=== PATIENT | female | born 1940 | race Caucasian/White ===

== ENCOUNTER 2019-11-21 17:39 | Inpatient (IN) | payer MEDICARE, OTHER ==
[2019-11-23] MEDS ORDERED: guaiFENesin ER 600 MG TAB PO PRN (07:28)
[2019-11-23] MEDS ORDERED: Loperamide HCl 2 MG CAP PO PRN (07:28)
[2019-11-23] MEDS ORDERED: Acetaminophen 500 MG TAB PO PRN (07:28)
[2019-11-23] MEDS ORDERED: DEXTROMETHORPHAN POLISTIREX PO PRN (08:15)
[2019-11-23] MEDS: Aspirin 81 mg Enteric Coated Tablet PO SCH (08:39)
[2019-11-23] MEDS: Ferrous Sulfate 325 MG TAB PO SCH ×2 (08:39→16:00)
[2019-11-23] MEDS: Carbidopa/Levodopa CR 50-200 mg Tablet PO SCH ×3 (08:39→21:55)
--- NOTE | 2019-11-23 08:50 | HP ---
HISTORY OF PRESENT ILLNESS: 79-year-old female admitted to Skilled unit for further physical therapy, recovery and rehabilitation as she has recently experienced significant physical and functional decline. She was transferred from [facility] where she had been admitted on 11/11/19 for AMS and UTI. She tested + for COVID-19 2 days prior to her admission, and based on her history, it was estimated she was between 9-14 days from onset of COVID symptoms/exposure. Fortunately she experienced only mild respiratory illness. She was treated for UTI, and Infectious Disease determined that her altered status was most likely due to her past history of dementia and Parkinson's with minimal respiratory impact from COVID-19. Her urine culture was positive for gram-negative rods, but low colony count, blood cultures were negative. History obtained from record; patient is disoriented and confused, and there is no family present. CURRENT MEDICATIONS: Include; 1. Carbidopa-levodopa t.i.d. 2. Vitamin D3 1000 units at bedtime. 3. Donepezil 10 mg daily. 4. Ferrous sulfate 325 p.o. b.i.d. 5. Memantine 10 mg b.i.d. 6. She has p.r.n. cough medicines, which she has not used. 7. She is also taking citalopram 20 mg at bedtime. 8. She has p.r.n. imodium. 9. Ziprasidone 20 mg at bedtime. 10. She has Colace for p.r.n. constipation. 11. She is taking Lipitor 10 mg. 12. Aspirin 81 mg. PAST MEDICAL HISTORY: Breast cancer, dementia, Parkinson's. PAST SURGICAL HISTORY: Left mastectomy. SOCIAL HISTORY: She currently resides in a long-term care facility in [facility]. FAMILY HISTORY: Unknown. ALLERGIES: ZOFRAN, UNKNOWN REACTION. REVIEW OF SYSTEMS: Is not obtainable due to patient's underlying dementia. PHYSICAL EXAMINATION: GENERAL APPEARANCE: She is alert when aroused, oriented times person only. VITAL SIGNS: Temperature 97.4, heart rate 58, respirations 20, 95% O2 Sat, and Blood pressure 99/65. HEENT: Eyes, conjunctivae clear. No discharge. Moist mucous membranes. NECK/THYROID: Supple. No lymphadenopathy. No carotid bruits. No thyromegaly. CARDIOVASCULAR: Regular rate and rhythm. Normal S1 and S2. No murmurs. Occasional early ectopic. RESPIRATORY: Clear to auscultation and good air entry bilaterally. No wheezes, rhonchi, or rales, respirations are regular and unlabored. NEUROLOGIC: CNII-XII grossly intact. Motor function slowed with decreased coordination. SKIN: Normal. No rash. EXTREMITIES: Well-formed, symmetrical. No clubbing, cyanosis, or edema. ASSESSMENT: 1. Dementia. 2. Parkinson's. 3. Recent COVID-19 infection, day 14+ from onset PLAN: Admit to [facility] for [facility] care and physical therapy to strengthen and maximize her physical and functional activity level. Job ID: [id number] [facility]
[2019-11-23] MEDS: Ziprasidone 20 MG CAP PO SCH (16:00)
[2019-11-23] MEDS: Citalopram 20 MG TAB PO SCH (21:55)
[2019-11-23] MEDS: Atorvastatin Calcium 10 MG TAB PO SCH (21:55)
[2019-11-23] MEDS: Donepezil HCl 10 MG TAB PO SCH (21:56)
[2019-11-24] MEDS: Ferrous Sulfate 325 MG TAB PO SCH ×3 (08:38→16:15)
[2019-11-24] MEDS: Aspirin 81 mg Enteric Coated Tablet PO SCH ×2 (08:38→09:16)
[2019-11-24] MEDS: Carbidopa/Levodopa CR 50-200 mg Tablet PO SCH ×4 (08:39→20:28)
[2019-11-24] MEDS ORDERED: Aspirin 81 mg Enteric Coated Tablet PO SCH (12:15)
[2019-11-24] MEDS ORDERED: Carbidopa/Levodopa CR 50-200 mg Tablet PO SCH (12:15)
[2019-11-24] MEDS ORDERED: Ferrous Sulfate 325 MG TAB PO SCH (12:15)
[2019-11-24 13:26] VITALS: BMI 26.2
[2019-11-24] MEDS: Ziprasidone 20 MG CAP PO SCH (16:01)
[2019-11-24] MEDS: Citalopram 20 MG TAB PO SCH (20:27)
[2019-11-24] MEDS: Donepezil HCl 10 MG TAB PO SCH (20:29)
[2019-11-24] MEDS: Atorvastatin Calcium 10 MG TAB PO SCH (20:29)
[2019-11-25] MEDS: Ferrous Sulfate 325 MG TAB PO SCH ×2 (09:50→16:00)
[2019-11-25] MEDS: Aspirin 81 mg Enteric Coated Tablet PO SCH (09:51)
[2019-11-25] MEDS: Carbidopa/Levodopa CR 50-200 mg Tablet PO SCH ×3 (09:51→20:43)
[2019-11-25] MEDS: Ziprasidone 20 MG CAP PO SCH (16:00)
[2019-11-25] MEDS: Atorvastatin Calcium 10 MG TAB PO SCH (20:44)
[2019-11-25] MEDS: Citalopram 20 MG TAB PO SCH (20:45)
[2019-11-25] MEDS: Donepezil HCl 10 MG TAB PO SCH (20:45)
[2019-11-26] MEDS: Carbidopa/Levodopa CR 50-200 mg Tablet PO SCH ×3 (08:26→20:53)
[2019-11-26] MEDS: Ferrous Sulfate 325 MG TAB PO SCH ×2 (08:26→15:59)
[2019-11-26] MEDS: Aspirin 81 mg Enteric Coated Tablet PO SCH (08:26)
[2019-11-26] MEDS: Ziprasidone 20 MG CAP PO SCH (15:59)
[2019-11-26] MEDS: Donepezil HCl 10 MG TAB PO SCH (20:53)
[2019-11-26] MEDS: Atorvastatin Calcium 10 MG TAB PO SCH (20:54)
[2019-11-26] MEDS: Citalopram 20 MG TAB PO SCH (20:54)
[2019-11-27] MEDS: Carbidopa/Levodopa CR 50-200 mg Tablet PO SCH ×3 (08:30→21:12)
[2019-11-27] MEDS: Ferrous Sulfate 325 MG TAB PO SCH ×2 (08:30→18:10)
[2019-11-27] MEDS: Aspirin 81 mg Enteric Coated Tablet PO SCH (08:30)
[2019-11-27] MEDS: Citalopram 20 MG TAB PO SCH (21:12)
[2019-11-27] MEDS: Donepezil HCl 10 MG TAB PO SCH (21:13)
[2019-11-28 05:28] LABS: ALT (SGPT) 28 U/L (8-55); AST (SGOT) 29 U/L (5-34); Albumin 3.1 g/dL (3.4-4.8); Alkaline Phosphatase 110 U/L (40-110); Anion Gap 14 mmol/L (10-20); BUN (Urea Nitrogen) 24 mg/dL (9.8-20.1); Bilirubin, Total 0.5 mg/dL (0.2-1.2); Calc. Creatinine Clearance 79 mL/min (70-130); Calcium 8.7 mg/dL (7.8-10.44); Carbon Dioxide 25 mmol/L (23-31); Chloride 103 mmol/L (98-107); Estimated GFR-MDRD Greater than 90; Globulin 2.8 g/dL (2.4-3.5); Glucose 90 mg/dL (83-110); Potassium 4.2 mmol/L (3.5-5.1); Protein, Total 5.9 g/dL (6.0-8.3); Sodium 138 mmol/L (136-145)
[2019-11-28 05:31] LABS: #Basophils 0.1 thou/uL (0.0-0.2); #Eosinphils 0.2 thou/uL (0.0-0.7); #Lymphocytes 1.4 thou/uL (1.20-3.40); #Monocytes 0.4 thou/uL (0.11-0.59); #Neutrophils 3.5 thou/uL (1.40-6.50); %Eosinophils 3.3 % (0.0-10.0); %Lymphocytes 24.7 % (21.0-51.0); %Monocytes 7.5 % (0.0-10.0); %Neutrophils 63.5 % (42.0-75.0); Hemoglobin 10.6 g/dL (12.0-16.0); Mean Corpuscular HGB CONC 31.8 g/dL (32.0-36.0); Mean Corpuscular Hemoglobin 31.6 pg (27.0-31.0); Mean Corpuscular Volume 99.1 fL (78.0-98.0); Mean Platelet Volume 5.6 fL (7.4-10.4); Platelet Count 216 thou/uL (130-400); Red Blood Cell (RBC) Count 3.36 mill/uL (4.20-5.40); White Blood Cell (WBC) Count 5.5 thou/uL (4.8-10.8)
[2019-11-28] MEDS: Aspirin 81 mg Enteric Coated Tablet PO SCH (09:00)
[2019-11-28] MEDS: Carbidopa/Levodopa CR 50-200 mg Tablet PO SCH ×3 (09:01→21:02)
[2019-11-28] MEDS: Ferrous Sulfate 325 MG TAB PO SCH ×2 (09:02→16:28)
[2019-11-28] MEDS: Donepezil HCl 10 MG TAB PO SCH (21:02)
[2019-11-28] MEDS: Atorvastatin Calcium 10 MG TAB PO SCH (21:02)
[2019-11-28] MEDS: Citalopram 20 MG TAB PO SCH (21:02)
[2019-11-29] MEDS: Docusate 100 MG CAP PO PRN (09:01)
[2019-11-29] MEDS: Ferrous Sulfate 325 MG TAB PO SCH ×2 (09:02→17:57)
[2019-11-29] MEDS: Carbidopa/Levodopa CR 50-200 mg Tablet PO SCH ×3 (09:02→21:03)
[2019-11-29] MEDS: Aspirin 81 mg Enteric Coated Tablet PO SCH (09:03)
[2019-11-29] MEDS: Atorvastatin Calcium 10 MG TAB PO SCH (21:00)
[2019-11-29] MEDS: Donepezil HCl 10 MG TAB PO SCH (21:00)
[2019-11-29] MEDS: Citalopram 20 MG TAB PO SCH (21:01)
[2019-11-30] MEDS: Ferrous Sulfate 325 MG TAB PO SCH ×2 (08:38→16:21)
[2019-11-30] MEDS: Aspirin 81 mg Enteric Coated Tablet PO SCH (08:39)
[2019-11-30] MEDS: Carbidopa/Levodopa CR 50-200 mg Tablet PO SCH ×3 (08:39→20:50)
[2019-11-30] MEDS: Donepezil HCl 10 MG TAB PO SCH (20:50)
[2019-11-30] MEDS: Atorvastatin Calcium 10 MG TAB PO SCH (20:50)
[2019-11-30] MEDS: Citalopram 20 MG TAB PO SCH (20:50)
[2019-12-01] MEDS: Ferrous Sulfate 325 MG TAB PO SCH ×2 (08:55→17:32)
[2019-12-01] MEDS: Docusate 100 MG CAP PO PRN (08:56)
[2019-12-01] MEDS: Aspirin 81 mg Enteric Coated Tablet PO SCH (08:56)
[2019-12-01] MEDS: Carbidopa/Levodopa CR 50-200 mg Tablet PO SCH ×3 (08:56→20:50)
[2019-12-01] MEDS: Citalopram 20 MG TAB PO SCH ×2 (20:49→20:50)
[2019-12-01] MEDS: Donepezil HCl 10 MG TAB PO SCH (20:50)
[2019-12-01] MEDS: Atorvastatin Calcium 10 MG TAB PO SCH (20:51)
[2019-12-02] MEDS: Aspirin 81 mg Enteric Coated Tablet PO SCH (08:09)
[2019-12-02] MEDS: Carbidopa/Levodopa CR 50-200 mg Tablet PO SCH ×3 (08:10→21:59)
[2019-12-02] MEDS: Ferrous Sulfate 325 MG TAB PO SCH ×2 (08:10→17:18)
[2019-12-02] MEDS: Atorvastatin Calcium 10 MG TAB PO SCH (21:58)
[2019-12-02] MEDS: Donepezil HCl 10 MG TAB PO SCH (21:59)
[2019-12-03] MEDS: Carbidopa/Levodopa CR 50-200 mg Tablet PO SCH ×3 (09:57→20:21)
[2019-12-03] MEDS: Aspirin 81 mg Enteric Coated Tablet PO SCH (09:58)
[2019-12-03] MEDS: Ferrous Sulfate 325 MG TAB PO SCH ×2 (09:58→17:23)
[2019-12-03] MEDS: Atorvastatin Calcium 10 MG TAB PO SCH (20:21)
[2019-12-03] MEDS: Citalopram 20 MG TAB PO SCH (20:21)
[2019-12-03] MEDS: Donepezil HCl 10 MG TAB PO SCH (20:21)
[2019-12-04] MEDS: Ferrous Sulfate 325 MG TAB PO SCH ×2 (10:16→17:25)
[2019-12-04] MEDS: Carbidopa/Levodopa CR 50-200 mg Tablet PO SCH ×3 (10:16→21:04)
[2019-12-04] MEDS: Aspirin 81 mg Enteric Coated Tablet PO SCH (10:16)
[2019-12-04] MEDS: Citalopram 20 MG TAB PO SCH (21:04)
[2019-12-04] MEDS: Atorvastatin Calcium 10 MG TAB PO SCH (21:05)
[2019-12-04] MEDS: Donepezil HCl 10 MG TAB PO SCH (21:05)
[2019-12-05] MEDS: Ferrous Sulfate 325 MG TAB PO SCH ×2 (08:35→18:04)
[2019-12-05] MEDS: Aspirin 81 mg Enteric Coated Tablet PO SCH (08:35)
[2019-12-05] MEDS: Carbidopa/Levodopa CR 50-200 mg Tablet PO SCH ×3 (08:36→21:15)
[2019-12-05] MEDS: Atorvastatin Calcium 10 MG TAB PO SCH (21:15)
[2019-12-05] MEDS: Citalopram 20 MG TAB PO SCH (21:16)
[2019-12-05] MEDS: Donepezil HCl 10 MG TAB PO SCH (21:16)
[2019-12-06] MEDS: Carbidopa/Levodopa CR 50-200 mg Tablet PO SCH ×3 (08:31→20:29)
[2019-12-06] MEDS: Aspirin 81 mg Enteric Coated Tablet PO SCH (08:32)
[2019-12-06] MEDS: Ferrous Sulfate 325 MG TAB PO SCH ×2 (08:33→17:44)
[2019-12-06] MEDS: Atorvastatin Calcium 10 MG TAB PO SCH (20:30)
[2019-12-06] MEDS: Donepezil HCl 10 MG TAB PO SCH (20:30)
[2019-12-06] MEDS: Citalopram 20 MG TAB PO SCH (20:30)
[2019-12-07] MEDS: Ferrous Sulfate 325 MG TAB PO SCH ×2 (07:57→15:59)
[2019-12-07] MEDS: Carbidopa/Levodopa CR 50-200 mg Tablet PO SCH ×3 (07:59→20:43)
[2019-12-07] MEDS: Aspirin 81 mg Enteric Coated Tablet PO SCH (07:59)
[2019-12-07] MEDS: Atorvastatin Calcium 10 MG TAB PO SCH (20:43)
[2019-12-07] MEDS: Donepezil HCl 10 MG TAB PO SCH (20:44)
[2019-12-07] MEDS: Citalopram 20 MG TAB PO SCH (20:44)
[2019-12-08] MEDS: Aspirin 81 mg Enteric Coated Tablet PO SCH (09:07)
[2019-12-08] MEDS: Carbidopa/Levodopa CR 50-200 mg Tablet PO SCH (09:07)
[2019-12-08] MEDS: Ferrous Sulfate 325 MG TAB PO SCH (09:07)
[2019-12-08 13:48] VITALS: BP 98/51; TEMP 98.4
--- NOTE | 2019-12-10 03:44 | DIS ---
DATE OF ADMISSION: 11/22/2019 DATE OF DISCHARGE: 12/08/2019 DISPOSITION: [facility]. DISCHARGE DIAGNOSES: Dementia and Parkinsons with Cognitive Decline, Asymptomatic COVID-19 + DISCHARGE MEDICATIONS: 1. Carbidopa/levodopa 50/200 half tablet p.o. t.i.d. 2. Citalopram 20 mg p.o. at bedtime. 3. Memantine 10 mg p.o. b.i.d. 4. Donepezil 10 mg p.o. at bedtime. 5. Atorvastatin 10 mg p.o. at bedtime. 6. Enteric-coated aspirin 81 mg p.o. daily. 7. Cholecalciferol 1000 units p.o. at bedtime. 8. Ferrous sulfate 325 p.o. b.i.d. with meals. 9. Docusate sodium (Colace) 100 mg p.o. daily p.r.n. constipation. 10. Acetaminophen 500 mg p.o. q.6 p.r.n. pain. CODE STATUS: Do not attempt resuscitation. Medical power of assistant prosecuting attorney is Angélica Aguilar,patient's daughter and her contact information should it be required is [phone]. ALLERGIES: ZOFRAN. HOSPITAL COURSE: The patient was a resident at [facility], when admitted on 11/11/2019 for altered mental status and UTI. She had been tested positive for COVID-19 prior to admission on 11/02/2019. She again tested positive on 2019, but she never exhibited any respiratory symptoms. She was discharged from acute care on 11/22/2019 and transferred to [facility] for physical rehabilitation. At day #15, it was determined that she had reached her maximum potential and she could return to her assisted living community. In consultation with her adult daughter, Angélica Aguilar, she will be referred for hospice evaluation as she has never fully regained her prior cognitive level of functioning. She has experienced significant decline and does not recognize her daughter. She is oriented to person only. She remains confused and disoriented and unable to engage in conversation or answer simple yes, no questions. She is ambulating with her walker and touch assist, but is unable to feet, toilet, bathe, or dress herself. She requires 24-hour care and supervision for all day ADLs. She has, however, maintained her appetite and her weight is stable at 154 pounds. She has mild chronic anemia. Her hemoglobin is 11, her hematocrit is 33. She has a normal WBC and normal renal function. Her albumin was mildly decreased at 3.1. Her vital signs are stable. She remained afebrile and she is ready for transfer. Job ID: [id number] [facility]
== END 2019-12-08 15:10 | DRG 57 ==
LOC: BURMED 11-22 18:31
PROVIDERS: ADMIT Family Medicine; ATTEND Family Medicine
DX: G20 Parkinson's disease (principal); F02.80 Dementia in other diseases classified elsewhere, unspecified severity, without behavioral disturbance, psychotic disturbance, mood disturbance, and anxiety; R41.81 Age-related cognitive decline; D64.9 Anemia, unspecified; Z90.12 Acquired absence of left breast and nipple; Z85.3 Personal history of malignant neoplasm of breast
CPT/HCPCS: 36415; 80053; 85025